=== PATIENT | female | born 1975 | race Caucasian/White ===

== ENCOUNTER → 2020-08-22 | Outpatient (CLI) | payer OTHER | END | disposition home or self-care (01) | LOC: LAB SHORT 12:03 → LAB 12:03 | DX: R19.5 Other fecal abnormalities (principal) | CPT/HCPCS: 80053; 85025 ==

== ENCOUNTER 2020-09-21 08:50 | Day surgery (SDC) | payer OTHER ==
[~2020-09-21] VITALS: Ht 165.1 cm; Wt 82.6 kg
[~2020-09-21 08:50] MED LIST: HYDACE5325 PO; PROM25 PO; [UNRECOGNIZED DRUG - OTHER] PO
[2020-09-21] MEDS ORDERED: RESTORIL15 M1 PO (11:04)
[2020-09-21] MEDS ORDERED: MONT10T PO (11:05)
[2020-09-21] MEDS ORDERED: DEXT10ER PO (11:06)
--- NOTE | 2020-09-21 11:17 | NUR ---
Ambulatory in Day Surgery Patient states colon prep results clear. History, Chart, Medications and Allergies reviewed before start of procedure. Lungs clear T/O to Auscultation. Pre-Op teaching done. Pt verbalizes understanding. Patient confirms NPO status and agrees with scheduled surgery.
--- NOTE | 2020-09-21 12:12 | NUR ---
09/21/20 1212 Erich Menchaca PATIENT DETERMINED TO BE ASA APPROPRIATE FOR PROPOFOL SEDATION PRIOR TO START OF PROCEDURE BY DR. GARCÍA. Bite Block Placed. 3-LEAD EKG REVIEWED WITH PHYSICIAN PRIOR TO START OF PROCEDURE. History, Chart, Medications and Allergies reviewed before start of procedure. MONITOR INTACT WITH CONTINUOUS PULSE OXIMETRY AND INTERMITTENT BP. O2 VIA N/C INTACT THROUGHOUT SEDATION/PROCEDURE.
--- NOTE | 2020-09-21 12:55 | NUR ---
PT DENIES DIFFICULTY SWALLOWING OR NAUSEA/ABD PAIN p PO FLUIDS. GIVEN DC INSTRUCTIONS, VERBALIZES AN UNDERSTANDING. NO QUESTIONS. IV DC'D, CATH INTACT AND PRESSURE DRESSING APPLIED. PT STANDS, DRESSES SELF s ASSISTANCE. OTD IN NAD VIA WC, ESCORTED BY RN, SAFE RIDE HOME.
== END 2020-09-21 22:53 | disposition home or self-care (01) ==
LOC: ORSCMMR 08:50 → ORD 10:00 → ORSCMMR 22:53
PROVIDERS: Internal Medicine Gastroenterology
PROC: 0DB98ZX Excision of Duodenum, Via Natural or Artificial Opening Endoscopic, Diagnostic (ICD-10-PCS; principal; 2020-09-21 10:00)
PROC: 0DB78ZX Excision of Stomach, Pylorus, Via Natural or Artificial Opening Endoscopic, Diagnostic (ICD-10-PCS; principal; 2020-09-21 10:00)
PROC: 0DBP8ZX Excision of Rectum, Via Natural or Artificial Opening Endoscopic, Diagnostic (ICD-10-PCS; principal; 2020-09-21 10:00)
DX: K92.1 Melena (principal); K62.1 Rectal polyp; K25.9 Gastric ulcer, unspecified as acute or chronic, without hemorrhage or perforation; K29.70 Gastritis, unspecified, without bleeding; J45.909 Unspecified asthma, uncomplicated; F17.210 Nicotine dependence, cigarettes, uncomplicated; Z79.899 Other long term (current) drug therapy
CPT/HCPCS: 88305; 88342; J2250; J2704; J7120